=== PATIENT | male | born 1975 | race Caucasian/White ===

== ENCOUNTER 2018-10-18 10:11 | Emergency (ER) | payer OTHER ==
[2018-10-18] MEDS ORDERED: ASPIRIN 81 MG TABLET, CHEWABLE PO ONE (10:28)
[2018-10-18] MEDS ORDERED: CLOPIDOGREL BISULFATE 300 MG TABLET ONE ×2 (10:44→16:04)
[2018-10-18] MEDS ORDERED: HEPARIN SODIUM,PORCINE/D5W 25,000 UNIT/250 ML RTUINJ IV ONE (10:45)
[2018-10-18] MEDS ORDERED: HEPARIN SOD (PORCINE) 1,000 UNIT/ML 10 ML VIAL ONE (10:45)
[2018-10-18 10:51] LABS: ABSOLUTE LYMPHOCYTES (AUTO) 2.1 10^3/uL (0.5-4.7); ABSOLUTE MONOCYTES (AUTO) 0.9 10^3/uL (0.1-1.4); ABSOLUTE NEUT (AUTO) 9.6 10^3/uL (1.7-8.2); BASOPHILS % (AUTO) 0.4 % (0-2); EOSINOPHILS % (AUTO) 0.3 % (0-6); HEMATOCRIT 48.1 % (37.9-51.0); HEMOGLOBIN 16.6 g/dL (13.5-17.0); LYMPHOCYTES % (AUTO) 16.7 % (13-45); MEAN CORPUSCULAR HEMOGLOBIN 30.3 pg (27.0-33.4); MEAN CORPUSCULAR HGB CONC 34.5 g/dL (32.0-36.0); MEAN CORPUSCULAR VOLUME 88 fl (80-97); MONOCYTES % (AUTO) 7.4 % (3-13); PLATELET COUNT 303 10^3/uL (150-450); RED BLOOD COUNT 5.47 10^6/uL (4.35-5.55); RED CELL DISTRIBUTION WIDTH 12.7 % (11.5-14.0); SEGMENTED NEUTROPHILS % (AUTO) 75.2 % (42-78); TOTAL CELLS COUNTED % (AUTO) 100 %; WHITE BLOOD COUNT 12.8 10^3/uL (4.0-10.5)
--- NOTE | 2018-10-18 10:52 | ER Document Report ---
ED General - General Chief Complaint: Chest Pain Stated Complaint: CHEST PAIN Time Seen by Provider: 10/18/18 10:33 Mode of Arrival: Ambulatory Information source: Patient Notes: 43-year-old male presents with complaint of chest pain that have been ongoing intermittently for 2 weeks with worsening of pain over the last few days. He describes it as a pressure-like pain. Patient denies any associated nausea, diaphoresis, shortness of breath. He does admit to an extensive smoking history and family history of early cardiac disease in his father who suffered his first heart attack at the age of 40. Patient arrived via private vehicle from urgent care after EKG showed ST elevation in the anterior leads. Patient refused EMS transport and drove himself here. He currently takes no medications. Admits to tobacco, alcohol and marijuana use. TRAVEL OUTSIDE OF THE [place] IN LAST 30 DAYS: No - HPI Onset: Last week Onset/Duration: Intermittent, Worse Quality of pain: Pressure Severity: Mild Associated symptoms: Chest pain. denies: Nonproductive cough, Productive cough, Nausea, Shortness of breath Exacerbated by: Denies Relieved by: Denies Similar symptoms previously: Yes Recently seen / treated by doctor: No - Related Data Allergies/Adverse Reactions: No Known Allergies Allergy (Verified 10/18/18 10:12) Past Medical History - General Information source: Patient, [facility] Records - Social History Smoking Status: Current Every Day Smoker Cigarette use (# per day): Yes - 20 Smoking Education Provided: Yes - Smoking cessation counseling was provided for 4 minutes at the bedside Frequency of alcohol use: Occasional Drug Abuse: Marijuana Lives with: Spouse/Significant other Family History: CAD, Other - Coronary artery disease Patient has suicidal ideation: No Patient has homicidal ideation: No - Medical History Medical History: Negative Review of Systems - Review of Systems Notes: REVIEW OF SYSTEMS: CONSTITUTIONAL : Denies fever, chills, or sweats. Denies recent illness. Denies weight loss, recent hospitalizations. EENT: Denies visual changes, eye pain. Denies sore throat, oral lesions, difficulty swallowing. CARDIOVASCULAR: Denies palpitations. Denies lower extremity edema. RESPIRATORY: Denies cough. Denies shortness of breath, wheezing. GASTROINTESTINAL: Denies abdominal pain or distention. Denies nausea, vomiting, or diarrhea. Denies blood in vomitus, stools, or per rectum. Denies black, tarry stools. Denies constipation. GENITOURINARY: Denies difficulty urinating, painful urination, frequency, blood in urine, testicular pain or penile discharge. MUSCULOSKELETAL: Denies back or neck pain or stiffness. Denies joint pain or swelling. SKIN: Denies rash, lesions or sores. HEMATOLOGIC : Denies easy bruising or bleeding. LYMPHATIC: Denies swollen glands. NEUROLOGICAL: Denies confusion or altered mental status. Denies loss of consciousness. Denies dizziness or lightheadedness. Denies headache. Denies weakness or paralysis. Denies problems difficulty with ambulation, slurred speech. Denies sensory loss, numbness, or tingling. Denies seizures. PSYCHIATRIC: Denies anxiety or stress. Denies depression, suicidal ideation, or Physical Exam - Vital signs Vitals: Resp Pulse Ox 21 H 99 10/18/18 10:26 10/18/18 10:26 Interpretation: Hypertensive - Notes Notes: PHYSICAL EXAMINATION: GENERAL: Well-appearing, well-nourished and in no acute distress. HEAD: Atraumatic, normocephalic. EYES: Pupils equal round and reactive to light, extraocular movements intact, sclera anicteric, conjunctiva are normal. ENT: Nares patent, oropharynx clear without exudates. Moist mucous membranes. NECK: Normal range of motion, supple without lymphadenopathy LUNGS: Breath sounds clear to auscultation bilaterally and equal. No wheezes rales or rhonchi. HEART: Regular rate and rhythm without murmurs ABDOMEN: Soft, nontender, nondistended abdomen. No guarding, no rebound. No masses appreciated. Musculoskeletal: Normal range of motion, no pitting or edema. No cyanosis. NEUROLOGICAL: Cranial nerves grossly intact. Normal speech, normal gait. Normal sensory, motor exams PSYCH: Normal mood, normal affect. SKIN: Warm, Dry, normal turgor, no rashes or lesions noted. Course - Re-evaluation Re-evalutation: Laboratory 10/18/18 10:30 WBC 12.8 H RBC 5.47 Hgb 16.6 Hct 48.1 MCV 88 MCH 30.3 MCHC 34.5 RDW 12.7 Plt Count 303 Seg Neutrophils % 75.2 Lymphocytes % 16.7 Monocytes % 7.4 Eosinophils % 0.3 Basophils % 0.4 Absolute Neutrophils 9.6 H Absolute Lymphocytes 2.1 Absolute Monocytes 0.9 Absolute Eosinophils 0.0 Absolute Basophils 0.0 Chest X-Ray 10/18/18 10:28 IMPRESSION: NO ACUTE RADIOGRAPHIC FINDING IN THE CHEST. Laboratory 10/18/18 10/18/18 10/18/18 10:30 10:30 10:30 WBC 12.8 H RBC 5.47 Hgb 16.6 Hct 48.1 MCV 88 MCH 30.3 MCHC 34.5 RDW 12.7 Plt Count 303 Seg Neutrophils % 75.2 Lymphocytes % 16.7 Monocytes % 7.4 Eosinophils % 0.3 Basophils % 0.4 Absolute Neutrophils 9.6 H Absolute Lymphocytes 2.1 Absolute Monocytes 0.9 Absolute Eosinophils 0.0 Absolute Basophils 0.0 Sodium 141.9 Potassium 4.5 Chloride 99 Carbon Dioxide 29 Anion Gap 14 BUN 12 Creatinine 1.23 Est GFR ( Amer) > 60 Est GFR (Non-Af Amer) > 60 Glucose 120 H Calcium 10.4 H Total Bilirubin 0.9 Direct Bilirubin 0.5 H Neonat Total Bilirubin Not Reportable Neonat Direct Bilirubin Not Reportable Neonat Indirect Bili Not Reportable AST 110 H ALT 33 Alkaline Phosphatase 82 Creatine Kinase 671 H CK-MB (CK-2) 28.90 H Troponin I 11.000 Total Protein 8.3 H Albumin 5.2 H Temp Pulse Resp BP Pulse Ox 98.5 F 13 156/102 H 100 10/18/18 11:12 10/18/18 11:15 10/18/18 11:15 10/18/18 11:15 10/18/18 10:46 43-year-old male presents via private vehicle from urgent care after EKG performed there showed ST elevation in V2 with reciprocal changes and leads II, III and aVF. Upon arrival to the emergency department his repeat EKG was obtained and shows ST elevation in V1, V2 with reciprocal changes in 3 and aVF. Patient reports 2 weeks of chest pain that he describes as intermittent, pressure-like. It is not associated with diaphoresis, nausea, lightheadedness or shortness of breath. Patient does have a significant smoking history he states he smokes 2 packs of cigarettes per day for over 20 years and does have a family history of early cardiac with a father who had his first heart attack in his 40s. Patient does admit to daily alcohol use, marijuana use but denies any cocaine use. Patient's blood pressure found to be markedly elevated, current blood pressure is currently 155/111.. He does not have a prior history of hypertension. Patient did receive 600 mg of Plavix, 324 mg of aspirin and heparin bolus and drip initiated as requested per interventionalist. [facility] STEMI line migraine with called. 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 Upon transfer team arrival patient is alert, awake and stable for discharge. 10/18/18 11:05 10/19/18 07:50 - Vital Signs Vital signs: Temp Pulse Resp BP Pulse Ox 98.5 F 13 156/102 H 100 10/18/18 11:12 10/18/18 11:15 10/18/18 11:15 10/18/18 11:15 - Laboratory Result Diagrams: 10/18/18 10:30 10/18/18 10:30 Laboratory results interpreted by me: 10/18/18 10/18/18 10/18/18 10:30 10:30 10:30 WBC 12.8 H Absolute Neutrophils 9.6 H Glucose 120 H Calcium 10.4 H Direct Bilirubin 0.5 H AST 110 H Creatine Kinase 671 H CK-MB (CK-2) 28.90 H Total Protein 8.3 H Albumin 5.2 H - Diagnostic Test Radiology reviewed: Image reviewed, Reports reviewed - EKG Interpretation by Me EKG shows normal: Sinus rhythm, ST-T Waves - ST elevation in V1, V2 Critical Care Note - Critical Care Note Total time excluding time spent on procedures (mins): 35 - Minutes of critical care time spent in direct contact evaluating and reevaluating the patient, treating symptoms, reviewing labs and studies and speaking with family and consultants excluding any procedures Discharge - Discharge Clinical Impression: Tobacco use, Family history of due to heart problem at 50 years of age or younger STEMI (ST elevation myocardial infarction) Qualifiers: Involved coronary artery: unspecified coronary artery Qualified Code(s): I21.3 - ST elevation (STEMI) myocardial infarction of unspecified site Chest pain Qualifiers: Chest pain type: unspecified Qualified Code(s): R07.9 - Chest pain, unspecified Hypertension Qualifiers: Hypertension type: unspecified Qualified Code(s): I10 - Essential (primary) hypertension Condition: Good Disposition: [facility] Forms: Elevated Blood Pressure
[2018-10-18] MEDS ORDERED: CLOPIDOGREL BISULFATE 300 MG TABLET PO ONE ×2 (10:56)
[2018-10-18] MEDS ORDERED: HEPARIN SOD (PORCINE) 1,000 UNIT/ML 10 ML VIAL IV ONE ×2 (10:57→10:59)
[2018-10-18] MEDS ORDERED: HEPARIN SODIUM,PORCINE/D5W 25,000 UNIT/250 ML RTUINJ IV PRN (10:59)
--- NOTE | 2018-10-18 10:59 | RADIOLOGY REPORT (SQ) ---
EXAM DESCRIPTION: CHEST SINGLE VIEW COMPLETED DATE/TIME: 10/18/2018 10:48 am REASON FOR STUDY: cp COMPARISON: None. EXAM PARAMETERS: NUMBER OF VIEWS: One view. TECHNIQUE: Single frontal radiographic view of the chest acquired. RADIATION DOSE: NA LIMITATIONS: None. FINDINGS: LUNGS AND PLEURA: No opacities, masses or pneumothorax. No pleural effusion. MEDIASTINUM AND HILAR STRUCTURES: No masses. Contour normal. HEART AND VASCULAR STRUCTURES: Heart normal in size. Normal vasculature. BONES: No acute findings. HARDWARE: None in the chest. OTHER: No other significant finding. IMPRESSION: NO ACUTE RADIOGRAPHIC FINDING IN THE CHEST. TECHNICAL DOCUMENTATION: JOB ID: [id number] [employer]- All Rights Reserved Reading location - IP/workstation name: [email or web address]
[2018-10-18 11:32] LABS: ALANINE AMINOTRANSFERASE 33 U/L (21-72); ALBUMIN 5.2 g/dL (3.5-5.0); ALKALINE PHOSPHATASE 82 U/L (38-126); ANION GAP 14 (5-19); ASPARTATE AMINO TRANSFERASE 110 U/L (17-59); BILIRUBIN,DIRECT 0.5 mg/dL (0.0-0.4); BILIRUBIN,TOTAL 0.9 mg/dL (0.2-1.3); BLOOD UREA NITROGEN 12 mg/dL (7-20); CALCIUM 10.4 mg/dL (8.4-10.2); CARBON DIOXIDE 29 mmol/L (22-30); CHLORIDE 99 mmol/L (98-107); CREATINE KINASE 671 U/L (55-170); GLUCOSE 120 mg/dL (75-110); POTASSIUM 4.5 mmol/L (3.6-5.0); SODIUM 141.9 mmol/L (137-145); TOTAL PROTEIN 8.3 g/dL (6.3-8.2)
[2018-10-18 11:41] LABS: CREATINE KINASE MB 28.9 ng/mL (<4.55)
[2018-10-18 12:19] VITALS: BP 156/102
--- NOTE | 2018-10-18 13:20 | EKG REPORT ---
SEVERITY:- ABNORMAL ECG - SINUS RHYTHM INFERIOR INFARCT, AGE INDETERMINATE MINIMAL ST ELEVATION, ANTERIOR LEADS : Confirmed by: Enoch Riddle MD 18-Oct-2018 13:19:41
--- NOTE | 2018-10-18 13:20 | EKG REPORT ---
SEVERITY:- ABNORMAL ECG - SINUS RHYTHM PROBABLE INFERIOR INFARCT, AGE INDETERMINATE LATERAL LEADS ARE ALSO INVOLVED BORDERLINE ST ELEVATION, ANTERIOR LEADS : Confirmed by: Enoch Riddle MD 18-Oct-2018 13:20:10
[2018-10-18] MEDS ORDERED: ASPIRIN 81 MG TABLET, CHEWABLE ONE (16:04)
== END 2018-10-18 11:27 | disposition short-term general hospital (02) ==
LOC: ER 10:11
DX: I21.3 ST elevation (STEMI) myocardial infarction of unspecified site (principal); I10 Essential (primary) hypertension; R07.89 Other chest pain; F17.210 Nicotine dependence, cigarettes, uncomplicated; Z71.6 Tobacco abuse counseling; F12.10 Cannabis abuse, uncomplicated; Z82.49 Family history of ischemic heart disease and other diseases of the circulatory system
CPT/HCPCS: 93005; 99291; 99406; 96374; 36415; 82553; 82550; 85025; 80053; 84484; 71045; 93010; J3490; J1644